=== PATIENT | male | born 1960 | race African-American/Black ===

== ENCOUNTER 2018-03-16 14:15 | Emergency (ER) | payer OTHER ==
[~2018-03-16] VITALS: Ht 177.8 cm; Wt 78.0 kg
[~2018-03-16 14:15] MED LIST: CEFADROXIL500 MG PO; CIPRO500 MG; DICYCLOMINE HCL20 MG PO; DIOVAN HCT 161 UDTA1 PO; DIOVAN320 MG; MAALOX525 MG/15 PO; PERCOCET 5/3251 TAB; TOPROL XL100 MG; TOPROL XL100 MG PO
[2018-03-16] MEDS ORDERED: COZAAR50 MG (14:44)
[2018-03-16] MEDS ORDERED: CRESTOR20 MG (14:44)
[2018-03-16] MEDS ORDERED: METFORMIN HCL500 MG (14:45)
== END 2018-03-16 19:02 | disposition home or self-care (01) ==
LOC: ER 14:15
DX: I10 Essential (primary) hypertension (principal); R51 Headache